=== PATIENT | female | born 1995 | race Caucasian/White ===

== ENCOUNTER 2016-10-19 05:01 | Emergency (ER) | payer OTHER ==
[~2016-10-19] VITALS: Ht 170.2 cm; Wt 61.2 kg
[~2016-10-19 05:01] MED LIST: TRINESSA 281 TAB PO
[2016-10-19 05:03] VITALS: BP 115/96; TEMP 98.2
[2016-10-19] MEDS ORDERED: PREDNISONE10 MG PO (05:26)
[2016-10-19 05:28] VITALS: PULSE 85
== END 2016-10-19 05:32 | disposition home or self-care (01) ==
LOC: COL.ER 05:01
DX: L30.9 Dermatitis, unspecified (principal)
CPT/HCPCS: J7512